=== PATIENT | female | born 1975 | race Caucasian/White ===

== ENCOUNTER 2021-10-03 10:16 | Outpatient (CLI) | payer OTHER | END 2021-10-03 10:17 | disposition home or self-care (01) | LOC: BICMAMMO 10:16 | PROVIDERS: ATTEND Nurse Practitioner Family | DX: Z12.31 Encounter for screening mammogram for malignant neoplasm of breast (principal); Z98.82 Breast implant status | CPT/HCPCS: 77063; 77067 ==

== ENCOUNTER → 2022-09-20 | Day surgery (SDC) | payer OTHER | LOC: BICULT 11:56 | PROVIDERS: ATTEND Nurse Practitioner Family | DX: R92.8 Other abnormal and inconclusive findings on diagnostic imaging of breast (principal) | CPT/HCPCS: 19083; 19084; 88305 ==

== ENCOUNTER 2022-12-11 13:45 | Outpatient (CLI) | payer OTHER | END 2022-12-11 13:46 | disposition home or self-care (01) | LOC: BICMRI 13:45 | PROVIDERS: ATTEND Nurse Practitioner Family | DX: N63.11 Unspecified lump in the right breast, upper outer quadrant (principal) | CPT/HCPCS: A9577; C8908 ==

== ENCOUNTER 2024-03-11 21:40 | Emergency (ER) | payer OTHER, SELFPAY | END 2024-03-11 23:50 | disposition home or self-care (01) | LOC: ERS 21:40 | DX: Z03.821 Encounter for observation for suspected ingested foreign body ruled out (principal); R07.89 Other chest pain | CPT/HCPCS: 71046; 93005 ==